=== PATIENT | male | born 1980 | race Two or more races ===

== ENCOUNTER 2017-02-10 23:25 | Emergency (ER) | payer MEDICAID ==
[~2017-02-10] VITALS: Ht 198.1 cm; Wt 102.1 kg
[2017-02-10 23:25] VITALS: BP 124/75
[~2017-02-10 23:25] MED LIST: [UNRECOGNIZED DRUG - CODE] SQ
--- NOTE | 2017-02-11 00:37 | NUR ---
administrative technician at [facility] for L ankle xray.
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
--- NOTE | 2017-02-11 01:24 | NUR ---
Patient discharged to home in stable condition. Written and verbal after care instructions given. Patient verbalizes understanding of instruction. ambulatory with a steady gait
== END 2017-02-11 01:24 | disposition home or self-care (01) ==
LOC: ER 23:26
DX: S93.402A Sprain of unspecified ligament of left ankle, initial encounter (principal); M48.02 Spinal stenosis, cervical region; M54.30 Sciatica, unspecified side; F17.210 Nicotine dependence, cigarettes, uncomplicated; X58.XXXA Exposure to other specified factors, initial encounter; Y93.01 Activity, walking, marching and hiking; Y92.89 Other specified places as the place of occurrence of the external cause; Y99.9 Unspecified external cause status
CPT/HCPCS: 73610; 99284; A4606; Z7610

== ENCOUNTER 2018-12-02 04:49 | Emergency (ER) | payer MEDICAID ==
[~2018-12-02] VITALS: Ht 182.9 cm; Wt 104.3 kg
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
[2018-12-02] MEDS ORDERED: LIDOCAINE 1% INJ 50 ML MDV IJ ONE (06:35)
--- NOTE | 2018-12-02 06:51 | NUR ---
AT BEDSIDE FOR LAC REPAIR
[2018-12-02] MEDS ORDERED: LIDOCAINE HCL/PF 1% 30 ML VIAL TP ONE (07:00)
[2018-12-02] MEDS ORDERED: TDAP [DIPH/PERTUSSIS/TET] 0.5 ML VIAL IM ONE ×2 (07:00→07:13)
[2018-12-02] MEDS ORDERED: HYDROCODONE/APAP 10/325MG 1 EA TABLET ONE (07:13)
--- NOTE | 2018-12-02 07:19 | NUR ---
RADIOLOGY AT BEDSIDE FOR CXR
[2018-12-02] MEDS ORDERED: HYDROCODONE/APAP 10/325MG 1 EA TABLET PO ONE (07:30)
--- NOTE | 2018-12-02 07:37 | NUR ---
GAVE REPORT TO HARIS ACUÑA FOR SYLVAIN
[2018-12-02 08:00] VITALS: BP 135/82
== END 2018-12-02 08:01 | disposition home or self-care (01) ==
LOC: ER 04:53
DX: S01.111A Laceration without foreign body of right eyelid and periocular area, initial encounter (principal); S20.219A Contusion of unspecified front wall of thorax, initial encounter; G35 Multiple sclerosis; M54.30 Sciatica, unspecified side; F17.210 Nicotine dependence, cigarettes, uncomplicated; V53.5XXA Driver of pick-up truck or van injured in collision with car, pick-up truck or van in traffic accident, initial encounter; Y93.89 Activity, other specified; Y92.413 State road as the place of occurrence of the external cause; Y99.8 Other external cause status
CPT/HCPCS: 12011; 71045; 90471; 90715; 93005; 99283; A6402; A6403 ×2; J3490 ×2

== ENCOUNTER 2018-12-09 22:40 | Emergency (ER) | payer MEDICAID ==
[~2018-12-09] VITALS: Ht 182.9 cm; Wt 104.3 kg
[2018-12-09 22:47] VITALS: BP 124/84
[2018-12-09] MEDS ORDERED: HYDROCODONE/APAP 10/325MG 1 EA TABLET ONE (23:05)
[2018-12-09] MEDS: HYDROCODONE/APAP 10/325MG 1 EA TABLET PO ONE ×2 (23:06→23:13)
--- NOTE | 2018-12-09 23:13 | NUR ---
Patient discharged to home in stable condition. Written and verbal after care instructions given. Patient verbalizes understanding of instruction. Pt ambulatory with a steady gait
== END 2018-12-09 23:14 | disposition home or self-care (01) ==
LOC: ER 22:40
DX: S01.111D Laceration without foreign body of right eyelid and periocular area, subsequent encounter (principal); G35 Multiple sclerosis; F17.210 Nicotine dependence, cigarettes, uncomplicated; G89.29 Other chronic pain; M54.30 Sciatica, unspecified side; X58.XXXD Exposure to other specified factors, subsequent encounter
CPT/HCPCS: Z7502

== ENCOUNTER 2019-03-14 10:20 | Emergency (ER) | payer MEDICAID ==
[~2019-03-14] VITALS: Ht 200.7 cm; Wt 107.0 kg
--- NOTE | 2019-03-14 10:45 | NUR ---
"DIFFUSE ABDOMINAL PAIN(BURNING), NAUSEA AND DIARRHEA SINCE LAST NIGHT" PT AAXO4, -SOB, NAD NOTED, VSS, PENDING MD LAGUNA
[2019-03-14] MEDS ORDERED: IV NS 0.9% 1,000 ML BAG IV ONE (11:00)
[2019-03-14 11:03] LABS: BASOPHILS # (AUTO) 0.1 /CMM (0.0-0.2); BASOPHILS % (AUTO) 1.1 % (0.0-2.0); EOSINOPHILS % (AUTO) 3.3 % (0.0-6.0); HEMATOCRIT 41 % (39-51); HEMOGLOBIN 13.7 g/dL (13.5-17.5); LYMPHOCYTES # (AUTO) 2.1 /CMM (0.8-4.8); LYMPHOCYTES % (AUTO) 29.7 % (20.0-44.0); MEAN CORPUSCULAR HGB CONC 34 g/dl (31.0-36.0); MEAN CORPUSCULAR VOLUME 94 fL (80-96); MONOCYTES # (AUTO) 0.7 /CMM (0.1-1.30); NEUTROPHILS % (AUTO) 55.9 % (43.0-81.0); PLATELET COUNT (AUTO) 185 /CMM (150-450); RED BLOOD CELL COUNT(AUTO) 4.33 MIL/uL (4.5-6.0); WHITE BLOOD COUNT (AUTO) 7.1 K/uL (4.3-11.0)
[2019-03-14 11:06] LABS: APPEARANCE,URINE Clear (CLEAR); BILIRUBIN,URINE Negative (NEGATIVE); BLOOD, URINE Trace-intact Ery/uL (NEGATIVE); COLOR,URINE Yellow (YELLOW); KETONES,URINE Negative (NEGATIVE); LEUKOCYTE ESTERASE ,URINE Negative (NEGATIVE); NITRITE, URINE Negative (NEGATIVE); PH,URINE 7.5 (5.0-8.0); PROTEIN,URINE Negative (NEGATIVE); UGLUCOSE Negative (NEGATIVE); UROBILINOGEN,URINE 0.2 EU/dL (0.2)
[2019-03-14 11:14] LABS: CALCIUM, SERUM 8.8 mg/dL (8.5-10.1); CREATININE 1.1 mg/dL (0.6-1.3); POTASSIUM 4.1 mmol/L (3.5-5.1)
[2019-03-14 11:26] LABS: ALBUMIN 3.9 g/dL (3.4-5.0); BILIRUBIN,DIRECT 0.2 mg/dL (0.0-0.2); BILIRUBIN,TOTAL 0.8 mg/dL (0.2-1.0)
[2019-03-14 12:18] LABS: BACTERIA,URINE Rare /HPF (None Seen); RBC,URINE 0-2 /HPF (0-2); SQUAMOUS EPITHELIAL CELL,UR Rare /HPF (None Seen); WBC,URINE 0-2 /HPF (0-3)
[2019-03-14 13:12] VITALS: BP 130/75
--- NOTE | 2019-03-14 13:12 | NUR ---
Patient discharged to home in stable condition. Written and verbal after care instructions given. Patient verbalizes understanding of instruction. IV removed. Catheter intact and site benign. Pressure and 4x4 applied to site. No bleeding noted.
== END 2019-03-14 13:13 | disposition home or self-care (01) ==
LOC: ER 10:23
DX: R10.84 Generalized abdominal pain (principal); R19.7 Diarrhea, unspecified; G35 Multiple sclerosis; F17.210 Nicotine dependence, cigarettes, uncomplicated
CPT/HCPCS: 36415; 74176; 80048; 80076; 81001; 83690; 85025; 96360; 99284; J7030; 81000-TC

== ENCOUNTER 2019-03-25 17:15 | Emergency (ER) | payer MEDICAID ==
[~2019-03-25] VITALS: Ht 200.7 cm; Wt 106.6 kg
--- NOTE | 2019-03-25 17:51 | NUR ---
BILAT FEET SWELLING / DIZZINESS X 2 WEEKS GRADUAL. ALSO C/O SOB WITH LIGHT ACTIVITIES. EDEMA IS 2+ PITTING. STATES HE HAS HAD FAINTING SPELLS WHERE HE FEELS DIZZY/LIGHTHEADED. DENIES PAIN, N/V/D. NO ACUTE DISTRESS NOTED. AT BEDSIDE, MADE COMFORTABLE, AND READY FOR EVAL.
--- NOTE | 2019-03-25 17:55 | NUR ---
LIANA PALMER AT BEDSIDE FOR EVAL.
--- NOTE | 2019-03-25 18:10 | NUR ---
IVF HELD FOR NOW, PER LIANA PALMER
--- NOTE | 2019-03-25 18:18 | NUR ---
EKG AND INTENSIVE CARE UNIT NURSE AT BEDSIDE
[2019-03-25 18:23] LABS: BASOPHILS # (AUTO) 0.1 /CMM (0.0-0.2); BASOPHILS % (AUTO) 1.1 % (0.0-2.0); EOSINOPHILS % (AUTO) 3.1 % (0.0-6.0); HEMATOCRIT 39 % (39-51); HEMOGLOBIN 13.2 g/dL (13.5-17.5); LYMPHOCYTES # (AUTO) 3.1 /CMM (0.8-4.8); LYMPHOCYTES % (AUTO) 37.4 % (20.0-44.0); MEAN CORPUSCULAR HGB CONC 34 g/dl (31.0-36.0); MEAN CORPUSCULAR VOLUME 93 fL (80-96); MONOCYTES # (AUTO) 0.7 /CMM (0.1-1.30); MONOCYTES % (AUTO) 8.9 % (2.0-12.0); NEUTROPHILS # (AUTO) 4.1 /CMM (1.8-8.9); NEUTROPHILS % (AUTO) 49.5 % (43.0-81.0); PLATELET COUNT (AUTO) 249 /CMM (150-450); RED BLOOD CELL COUNT(AUTO) 4.24 MIL/uL (4.5-6.0); WHITE BLOOD COUNT (AUTO) 8.3 K/uL (4.3-11.0)
[2019-03-25] MEDS: IV NS 0.9% 500 ML BAG IV ONE (18:30)
[2019-03-25 19:02] LABS: CALCIUM, SERUM 9.7 mg/dL (8.5-10.1); CARBON DIOXIDE 29 mmol/L (21-32); CHLORIDE 104 mmol/L (98-107); CREATININE 0.9 mg/dL (0.6-1.3); GLUCOSE 84 mg/dL (74-106); POTASSIUM 3.9 mmol/L (3.5-5.1); SODIUM SERUM 141 mmol/L (136-145); UREA NITROGEN, BLOOD 14 mg/dL (7-18)
[2019-03-25 19:14] LABS: ALANINE AMINOTRANSFERASE 20 U/L (12-78); ALKALINE PHOSPHATASE 73 U/L (46-116); ASPARTATE AMINOTRANSFERASE 18 U/L (15-37); B-TYPE NATRIURETIC PEPTIDE 256 PG/ML (0-125); BILIRUBIN,DIRECT 0.1 mg/dL (0.0-0.2); BILIRUBIN,TOTAL 0.6 mg/dL (0.2-1.0)
--- NOTE | 2019-03-25 20:12 | NUR ---
PT RESTING COMFORTABLY IN BED. NO COMPLAINTS AT THIS TIME. WILL CONT TO MONITOR.
--- NOTE | 2019-03-25 20:51 | NUR ---
Patient discharged to home in stable condition. Written and verbal after care instructions given. Patient verbalizes understanding of instruction.IV removed. Catheter intact and site benign. Pressure and 4x4 applied to site. No bleeding noted.
[2019-03-25 20:53] VITALS: BP 118/68
== END 2019-03-25 20:54 | disposition home or self-care (01) ==
LOC: ER 17:15
DX: R60.0 Localized edema (principal); R00.1 Bradycardia, unspecified; G35 Multiple sclerosis; F17.210 Nicotine dependence, cigarettes, uncomplicated
CPT/HCPCS: 36415; 71045-TC; 80048-TC; 80076-TC; 83880; 84443-TC; 84484-TC; 85025-TC; 93970-TC; J7030; J7040

== ENCOUNTER 2019-07-22 18:15 | Emergency (ER) | payer MEDICAID ==
[~2019-07-22] VITALS: Ht 200.7 cm; Wt 102.5 kg
[2019-07-22 18:35] VITALS: BP 141/99
[2019-07-22] MEDS ORDERED: ALBUTEROL FS 2.5 MG/3 ML VIAL.NEB NEB ONE (19:00)
[2019-07-22] MEDS ORDERED: IPRATROPIUM NEB FS 0.5 MG/2.5 ML AMPUL.NEB NEB ONE (19:00)
[2019-07-22] MEDS ORDERED: IPRATROPIUM NEB FS 0.5 MG/2.5 ML AMPUL.NEB ONE (19:06)
[2019-07-22] MEDS ORDERED: ALBUTEROL FS 2.5 MG/3 ML VIAL.NEB ONE (19:06)
--- NOTE | 2019-07-22 19:47 | NUR ---
Patient discharged to home in stable condition. Written and verbal after care instructions given. Patient verbalizes understanding of instruction. Pt ambulatory with a steady gait
== END 2019-07-22 19:48 | disposition home or self-care (01) ==
LOC: ER 18:15
DX: J20.9 Acute bronchitis, unspecified (principal); J45.909 Unspecified asthma, uncomplicated; G35 Multiple sclerosis; F12.10 Cannabis abuse, uncomplicated; F17.210 Nicotine dependence, cigarettes, uncomplicated; Z79.899 Other long term (current) drug therapy
CPT/HCPCS: 71045-TC

== ENCOUNTER 2020-04-21 23:18 | Emergency (ER) | payer MEDICAID | END 2020-04-22 01:36 | disposition home or self-care (01) | DX: S93.492A Sprain of other ligament of left ankle, initial encounter (principal); S40.011A Contusion of right shoulder, initial encounter; G35 Multiple sclerosis; F17.210 Nicotine dependence, cigarettes, uncomplicated; W01.0XXA Fall on same level from slipping, tripping and stumbling without subsequent striking against object, initial encounter; Y93.89 Activity, other specified; Y92.89 Other specified places as the place of occurrence of the external cause; Y99.8 Other external cause status ==

== ENCOUNTER 2023-03-17 02:14 | Emergency (ER) | payer MEDICAID ==
[~2023-03-17] VITALS: Ht 200.7 cm; Wt 106.6 kg
[~2023-03-17 02:14] MED LIST changes: +FLUC200T8 PO; +HYDR28GE TP
[2023-03-17] MEDS ORDERED: KETOROLAC TROMETHAMINE INJ 60 MG/2 ML VIAL IM ONE (03:00)
[2023-03-17] MEDS ORDERED: KETOROLAC TROMETHAMINE INJ 30 MG/ML VIAL ONE (03:01)
[2023-03-17 04:10] VITALS: BP 127/75; TEMP 97.9; O2SAT 99
== END 2023-03-17 04:11 | disposition home or self-care (01) ==
LOC: ER 02:15
DX: M25.572 Pain in left ankle and joints of left foot (principal); E78.00 Pure hypercholesterolemia, unspecified; G35 Multiple sclerosis; F17.200 Nicotine dependence, unspecified, uncomplicated; Z79.899 Other long term (current) drug therapy
CPT/HCPCS: 99284; 96372; 73610; 73564; J1885

== ENCOUNTER 2023-04-11 22:28 | Emergency (ER) | payer MEDICAID ==
[~2023-04-11] VITALS: Ht 200.7 cm; Wt 108.9 kg
[2023-04-12 00:06] VITALS: TEMP 98.1
[2023-04-12] MEDS ORDERED: IBUP-1957 PO (02:00)
[2023-04-12 02:55] VITALS: BP 117/84; O2SAT 99
== END 2023-04-12 02:55 | disposition home or self-care (01) ==
LOC: ER 22:30
DX: S62.617A Displaced fracture of proximal phalanx of left little finger, initial encounter for closed fracture (principal); E78.00 Pure hypercholesterolemia, unspecified; F17.200 Nicotine dependence, unspecified, uncomplicated; W18.30XA Fall on same level, unspecified, initial encounter; Y93.89 Activity, other specified; Y92.89 Other specified places as the place of occurrence of the external cause; Y99.8 Other external cause status
CPT/HCPCS: 73130-TC

== ENCOUNTER → 2023-08-19 | Emergency (ER) | payer MEDICAID ==
[~2023-08-19] VITALS: Ht 200.7 cm; Wt 108.9 kg
[~2023-08-19] MED LIST changes: +IBUP-1957 PO
[2023-08-19 21:21] VITALS: TEMP 98
[2023-08-19 23:09] VITALS: BP 135/72; O2SAT 98
== END | disposition home or self-care (01) ==
LOC: ER 21:01
DX: S09.90XA Unspecified injury of head, initial encounter (principal); F10.129 Alcohol abuse with intoxication, unspecified; E78.00 Pure hypercholesterolemia, unspecified; W18.30XA Fall on same level, unspecified, initial encounter; Y93.89 Activity, other specified; Y92.89 Other specified places as the place of occurrence of the external cause; Y99.8 Other external cause status; Y90.9 Presence of alcohol in blood, level not specified
CPT/HCPCS: 70450-TC

== ENCOUNTER 2023-08-26 11:34 | Emergency (ER) | payer MEDICAID ==
[~2023-08-26] VITALS: Ht 200.7 cm; Wt 108.9 kg
[2023-08-26 11:45] VITALS: BP 138/80; TEMP 98.2
[2023-08-26] MEDS ORDERED: IBUP-1957 PO (12:16)
[2023-08-26] MEDS ORDERED: SULF1TAB48 PO (12:16)
[2023-08-26 12:32] VITALS: O2SAT 98
== END 2023-08-26 12:32 | disposition home or self-care (01) ==
LOC: ER 11:54
DX: L03.032 Cellulitis of left toe (principal); E78.00 Pure hypercholesterolemia, unspecified

== ENCOUNTER 2023-10-17 10:57 | Emergency (ER) | payer MEDICAID ==
[~2023-10-17] VITALS: Ht 193 cm; Wt 117.5 kg
[~2023-10-17 10:57] MED LIST changes: +SULF1TAB48 PO
[2023-10-17 13:25] VITALS: BP 138/84; TEMP 98.6; O2SAT 99
== END 2023-10-17 13:26 | disposition home or self-care (01) ==
LOC: ER 11:00
DX: S00.81XA Abrasion of other part of head, initial encounter (principal); S00.90XA Unspecified superficial injury of unspecified part of head, initial encounter; F10.129 Alcohol abuse with intoxication, unspecified; R56.9 Unspecified convulsions; E78.00 Pure hypercholesterolemia, unspecified; F17.210 Nicotine dependence, cigarettes, uncomplicated; Z79.899 Other long term (current) drug therapy; W01.0XXA Fall on same level from slipping, tripping and stumbling without subsequent striking against object, initial encounter; Y93.89 Activity, other specified; Y92.89 Other specified places as the place of occurrence of the external cause; Y99.8 Other external cause status; Y90.9 Presence of alcohol in blood, level not specified
CPT/HCPCS: 70450-TC; 70486-TC

== ENCOUNTER 2024-01-28 03:52 | Emergency (ER) | payer MEDICAID ==
[~2024-01-28] VITALS: Ht 193 cm; Wt 117.5 kg
[2024-01-28 10:56] VITALS: BP 124/75; TEMP 98.3; O2SAT 97
== END 2024-01-28 10:30 | disposition home or self-care (01) ==
LOC: ER 04:00
DX: F10.129 Alcohol abuse with intoxication, unspecified (principal); E78.00 Pure hypercholesterolemia, unspecified; F17.210 Nicotine dependence, cigarettes, uncomplicated; Y90.9 Presence of alcohol in blood, level not specified; W19.XXXA Unspecified fall, initial encounter; Y93.89 Activity, other specified; Y92.89 Other specified places as the place of occurrence of the external cause; Y99.8 Other external cause status
CPT/HCPCS: 70450-TC; 82962-TC

== ENCOUNTER 2024-03-31 22:38 | Emergency (ER) | payer MEDICAID, OTHER | END 2024-04-01 01:04 | disposition left against medical advice (07) | LOC: ER 22:41 | DX: Z53.21 Procedure and treatment not carried out due to patient leaving prior to being seen by health care provider (principal) ==

== ENCOUNTER 2024-07-14 16:48 | Emergency (ER) | payer OTHER ==
[~2024-07-14] VITALS: Ht 200.7 cm; Wt 113.4 kg
[2024-07-14] MEDS ORDERED: BENZONATATE 100 MG CAPSULE PO ONE (17:19)
[2024-07-14] MEDS ORDERED: PSEUDOEPHEDRINE HCL 30 MG TABLET ONE (17:20)
[2024-07-14] MEDS: PSEUDOEPHEDRINE HCL 30 MG TABLET PO ONE (17:21)
[2024-07-14] MEDS: BENZONATATE 100 MG CAPSULE PO PRN (17:21)
[2024-07-14] MEDS ORDERED: ONDA4TAB5 PO (18:12)
[2024-07-14] MEDS ORDERED: ALBU18HF2 INH (18:12)
[2024-07-14] MEDS ORDERED: ONDANSETRON 4 MG TAB.RAPDIS ONE (18:38)
[2024-07-14] MEDS: ONDANSETRON 4 MG TAB.RAPDIS SL ONE (18:39)
[2024-07-14 18:41] VITALS: BP 128/78; TEMP 98.9; O2SAT 97
== END 2024-07-14 18:47 | disposition home or self-care (01) ==
LOC: ER 16:55
DX: R05.9 Cough, unspecified (principal); R09.81 Nasal congestion; R50.9 Fever, unspecified; J34.89 Other specified disorders of nose and nasal sinuses; E78.00 Pure hypercholesterolemia, unspecified; F17.290 Nicotine dependence, other tobacco product, uncomplicated; G35 Multiple sclerosis
CPT/HCPCS: 99284; 71045; Q0162

== ENCOUNTER 2025-01-08 03:31 | Emergency (ER) | payer OTHER ==
[~2025-01-08] VITALS: Ht 188 cm; Wt 104.3 kg
[~2025-01-08 03:31] MED LIST changes: +ALBU18HF2 INH; +ONDA4TAB5 PO
[2025-01-08] MEDS: IV NS 0.9% 1,000 ML IV ONE (04:15)
[2025-01-08 04:32] LABS: BASOPHILS # (AUTO) 0.1 K/uL (0.0-0.2); BASOPHILS % (AUTO) 1.5 % (0.0-2.0); EOSINOPHILS # (AUTO) 0.5 K/uL (0.0-0.7); EOSINOPHILS % (AUTO) 5.6 % (0.0-6.0); HEMATOCRIT 39 % (39-51); HEMOGLOBIN 13.1 g/dL (13.5-17.5); LYMPHOCYTES % (AUTO) 30.6 % (20.0-44.0); MEAN CORPUSCULAR HEMOGLOBIN 31 PG (26.0-33.0); MEAN CORPUSCULAR HGB CONC 34 g/dl (31.0-36.0); MEAN CORPUSCULAR VOLUME 93 fL (80-96); MONOCYTES # (AUTO) 1.1 K/uL (0.1-1.30); MONOCYTES % (AUTO) 11.4 % (2.0-12.0); NEUTROPHILS # (AUTO) 4.9 K/uL (1.8-8.9); NEUTROPHILS % (AUTO) 50.9 % (43.0-81.0); PLATELET COUNT (AUTO) 233 K/uL (150-450); RED CELL DISTRIBUTION WIDTH 13.9 % (11.5-15.0); WHITE BLOOD COUNT (AUTO) 9.7 K/uL (4.3-11.0)
[2025-01-08 04:39] LABS: CALCIUM, SERUM 8.5 mg/dL (8.5-10.1); CARBON DIOXIDE 28 mmol/L (21-32); CHLORIDE 104 mmol/L (98-107); CREATININE 0.8 mg/dL (0.6-1.3); GLUCOSE 95 mg/dL (74-106); POTASSIUM 4.3 mmol/L (3.5-5.1); SODIUM SERUM 138 mmol/L (136-145); UREA NITROGEN, BLOOD 22 mg/dL (7-18)
[2025-01-08 04:41] LABS: CREATINE KINASE, TOTAL 121 U/L (39-308)
[2025-01-08 04:53] LABS: ALANINE AMINOTRANSFERASE 23 U/L (12-78); ALBUMIN 3.4 g/dL (3.4-5.0); ALCOHOL, BLOOD < 3 mg/dL (0-10); ALKALINE PHOSPHATASE 61 U/L (46-116); ASPARTATE AMINOTRANSFERASE 21 U/L (15-37); BILIRUBIN,TOTAL 0.5 mg/dL (0.2-1.0); MAGNESIUM 2.1 mg/dL (1.8-2.4); NT-PRO BNP 43 pg/mL (0-125); TOTAL PROTEIN, SERUM 7.1 g/dL (6.4-8.2)
[2025-01-08 05:26] LABS: LACTIC ACID 0.4 mmol/L (0.4-2.0)
[2025-01-08 05:44] LABS: APPEARANCE,URINE CLEAR (CLEAR); BILIRUBIN,URINE NEGATIVE (NEGATIVE); BLOOD, URINE NEGATIVE Ery/uL (NEGATIVE); COLOR,URINE YELLOW (YELLOW); KETONES,URINE NEGATIVE (NEGATIVE); LEUKOCYTE ESTERASE ,URINE NEGATIVE (NEGATIVE); NITRITE, URINE NEGATIVE (NEGATIVE); PH,URINE 6.5 (5.0-8.0); PROTEIN,URINE NEGATIVE (NEGATIVE); UGLUCOSE NEGATIVE (NEGATIVE); UROBILINOGEN,URINE 0.2 EU/dL (0.2)
[2025-01-08 05:51] LABS: AMPHETAMINE, URINE NEGATIVE (NEGATIVE); BARBITURATE, URINE NEGATIVE (NEGATIVE); BENZODIAZEPINE, URINE NEGATIVE (NEGATIVE); COCCAINE, URINE NEGATIVE (NEGATIVE); OPIATE, URINE NEGATIVE (NEGATIVE); PHENCYCLIDINE SCREEN,URINE NEGATIVE (NEGATIVE)
[2025-01-08 05:57] LABS: CANNABINOID, URINE POSITIVE (NEGATIVE)
[2025-01-08] MEDS ORDERED: CLINDAMYCIN 600 MG in IV NS 0.9% 46 ML IV ONE (07:30)
[2025-01-08] MEDS ORDERED: CLINDAMYCIN IV RTU IN D5W 900 MG/50 ML PIGGYBACK IV ONE (07:30)
[2025-01-08] MEDS ORDERED: CLINDAMYCIN HCL 150 MG CAPSULE ONE (07:32)
[2025-01-08] MEDS: CLINDAMYCIN HCL 150 MG CAPSULE PO ONE (07:35)
[2025-01-08] MEDS ORDERED: CLIN150C16 PO (07:39)
[2025-01-08 07:52] VITALS: BP 134/79; TEMP 98.1; O2SAT 98
== END 2025-01-08 07:53 | disposition home or self-care (01) ==
LOC: ER 03:34
DX: G35 Multiple sclerosis (principal); R55 Syncope and collapse; E78.00 Pure hypercholesterolemia, unspecified; F17.290 Nicotine dependence, other tobacco product, uncomplicated; L08.9 Local infection of the skin and subcutaneous tissue, unspecified; Z79.899 Other long term (current) drug therapy
CPT/HCPCS: 99285; 96360; 93005; 71045; 70450; 85025; 82550; 87040; 83605; 83735; 81003; 36415; 80053; 84484; 83880; 80320; 80307; J7030; G0480; J3490

== ENCOUNTER 2025-01-24 17:33 | Emergency (ER) | payer OTHER ==
[~2025-01-24] VITALS: Ht 200.7 cm; Wt 106.6 kg
[~2025-01-24 17:33] MED LIST changes: +CLIN150C16 PO
[2025-01-24] MEDS: IV NS 0.9% 1,000 ML BAG IV ONE (18:06)
[2025-01-24] MEDS ORDERED: ONDA4TAB11 PO (18:20)
[2025-01-24 19:03] VITALS: BP 94/54; TEMP 98.4; O2SAT 98
== END 2025-01-24 19:28 | disposition home or self-care (01) ==
LOC: ER 17:35
DX: S93.492A Sprain of other ligament of left ankle, initial encounter (principal); F10.129 Alcohol abuse with intoxication, unspecified; E78.00 Pure hypercholesterolemia, unspecified; E86.0 Dehydration; F17.210 Nicotine dependence, cigarettes, uncomplicated; Z86.69 Personal history of other diseases of the nervous system and sense organs; X50.1XXA Overexertion from prolonged static or awkward postures, initial encounter; Y93.89 Activity, other specified; Y92.89 Other specified places as the place of occurrence of the external cause; Y99.8 Other external cause status; Y90.9 Presence of alcohol in blood, level not specified
CPT/HCPCS: 99283; 96360; J7030

== ENCOUNTER 2025-04-08 16:46 | Emergency (ER) | payer OTHER ==
[~2025-04-08] VITALS: Ht 200.7 cm; Wt 111.1 kg
[~2025-04-08 16:46] MED LIST changes: +ONDA4TAB11 PO
[2025-04-08 17:40] LABS: PLATELET COUNT (AUTO) 205 K/uL (150-450); RED BLOOD CELL COUNT(AUTO) 4.17 MIL/uL (4.5-6.0); RED CELL DISTRIBUTION WIDTH 13.0 % (11.5-15.0); WHITE BLOOD COUNT (AUTO) 7.8 K/uL (4.3-11.0)
[2025-04-08 17:47] LABS: CALCIUM, SERUM 8.7 mg/dL (8.5-10.1); CREATININE 0.9 mg/dL (0.6-1.3); SODIUM SERUM 133 mmol/L (136-145); UREA NITROGEN, BLOOD 17 mg/dL (7-18)
[2025-04-08 17:52] LABS: INR 1.04 (0.91-1.10)
[2025-04-08 17:53] LABS: ASPARTATE AMINOTRANSFERASE 20 U/L (15-37); TOTAL PROTEIN, SERUM 7.2 g/dL (6.4-8.2)
[2025-04-08 17:55] LABS: ALCOHOL, BLOOD < 3 mg/dL (0-10)
[2025-04-08 19:03] VITALS: BP 110/70; TEMP 98.3; O2SAT 99
== END 2025-04-08 19:04 | disposition home or self-care (01) ==
LOC: ER 16:49
DX: G40.409 Other generalized epilepsy and epileptic syndromes, not intractable, without status epilepticus (principal); R51.9 Headache, unspecified; E78.00 Pure hypercholesterolemia, unspecified; F17.290 Nicotine dependence, other tobacco product, uncomplicated; Z86.69 Personal history of other diseases of the nervous system and sense organs
CPT/HCPCS: 99284; 93005; 70450; 85025; 80048; 80076; 36415; 85730; 80320; A6403; G0480